=== PATIENT | male | born 1970 | race Hispanic/Latino ===

== ENCOUNTER 2018-02-27 10:10 | Day surgery (SDC) | payer BC, OTHER ==
[2018-02-27] MEDS ORDERED: Iodixanol 320 MG/ML 100 ML BOTTLE IV ONE (10:52)
[2018-02-27] MEDS ORDERED: Iodixanol 320 MG/ML 200 ML BOTTLE IV ONE (10:52)
[2018-02-27] MEDS ORDERED: Verapamil 2 ML ONE (10:53)
[2018-02-27] MEDS ORDERED: Midazolam 2 MG/2 ML VIAL ONE (10:53)
[2018-02-27] MEDS ORDERED: Lidocaine 2% MPF (5 ml) Inj ONE (11:01)
[2018-02-27 11:36] VITALS: BMI 25.8
--- NOTE | 2018-02-28 12:32 | CARDCATH ---
Copied To: Phill Cast MD Attending MD: Phill Cast MD PROCEDURE DATE: 02/27/2018 INDICATIONS: The patient is a 47-year-old male, who had undergone a nuclear stress test for symptoms of atypical chest pain, which was positive in the inferolateral wall. He had a recurrent episode of chest pain, for which he was bought in by EMS to [facility]. After being ruling out aortic dissection, he was transferred over to [facility] for cardiac catheterization. PROCEDURES PERFORMED: Left heart catheterization with selective left and right coronary angiogram via right radial approach, 6-Eritrean right radial arterial access, Mynx closure device for hemostasis. TECHNIQUES OF PROCEDURE: After obtaining informed consent, the patient was brought to the cardiac cath suite in post-absorptive and non-sedative state. The patient was prepped and draped in the usual sterile fashion, 2% lidocaine was used for infiltration of anesthesia. Using modified Seldinger technique, a 6-Eritrean sheath was introduced into the left radial artery. Subsequently, over a J-wire, JL4 and JR4 diagnostic catheters were used to engage the left and right coronary systems. Angiograms were obtained in different orthogonal views. JR4 catheter was subsequently used to cross the aortic valve and LV gram was obtained in the RDEMOND view. HEMODYNAMIC FINDINGS: Left ventricular end-diastolic pressure was 18 mmHg. There was no gradient noted upon the aortic valve pullback. No AI. No MR. Left ventricular ejection fraction is normal. Ejection fraction estimated with 55% to 60%. . Left main was a large size vessel, would bifurcate into LAD and left circumflex coronary artery. Left circumflex is a large-sized vessel runs into the AV groove, continued at obtuse marginal branch. Incase of a small branch running in the AV groove, left anterior descending is the large-sized vessel, it gives of a large diagonal 1 branch and then subsequently 2 small diagonals and septal perforators free of any obstructive disease, proximal mid and distal LAD 0%, proximal mid distal 0%, proximal and mid distal circumflex 0%, RCA proximal mid distal 0%. IMPRESSION: Nonobstructive coronary artery disease, normal Left ventricular ejection fraction. RECOMMENDATIONS: The patient can be discharged home in four hours, keep the patient on baby aspirin, low dose statins. Phill Cast MD [facility] # [id number]
[2018-03-03 11:10] VITALS: RESP 18; O2SAT 99
== END 2018-02-27 15:05 | disposition home or self-care (01) ==
LOC: C.CATHLAB 10:10
PROVIDERS: ATTEND Internal Medicine Interventional Cardiology
DX: I25.10 Atherosclerotic heart disease of native coronary artery without angina pectoris (principal)
CPT/HCPCS: 93458; 99152; 99153; C1769; C1887; C1894; J1644; J2001; J2250; J3010; Q9966; Q9967